=== PATIENT | female | born 1960 | race Caucasian/White ===

== ENCOUNTER 2017-09-18 11:04 | Emergency (ER) | payer OTHER ==
[2017-09-18] MEDS ORDERED: HYDROCODONE/APAP 5/325 MG TAB ONE (12:18)
--- NOTE | 2017-09-18 12:34 | RAD REPORT ---
EXAM DESCRIPTION: Shoulder Right 2 View - 09/18/2017 12:25 pm CLINICAL HISTORY: Shoulder pain COMPARISON: None. TECHNIQUE: Internal and external rotation views of the right shoulder were obtained. FINDINGS: There is no fracture or dislocation. AC joint is normal in appearance. No acute or suspici ous findings. IMPRESSION: Negative two-view right shoulder examination.
--- NOTE | 2017-09-18 12:35 | RAD REPORT ---
EXAM DESCRIPTION: RAD - Wrist Right 3 View - 09/18/2017 12:25 pm CLINICAL HISTORY: Fall, wrist pain COMPARISON: None. FINDINGS: No fracture is identified. There is no dislocation or periosteal reaction noted. Epiphyses and growth plates are Normal in appearance. No foreign body or other soft tissue abnormality. IMPRESSION: Negative right wrist examination.
--- NOTE | 2017-09-18 12:38 | RAD REPORT ---
EXAM DESCRIPTION: RAD - Knee Right 3 View - 09/18/2017 12:25 pm CLINICAL HISTORY: Fall, knee pain COMPARISON: None. FINDINGS: No acute fracture is present and there is no dislocation or periosteal reaction.No joint e ffusion seen. No joint space narrowing. Contusion or edema changes are present anterior to the tibia and anterior to the femur. There is curvilinear calcification along the medial femoral condyles. This is a Sagrario Stieda lesion from remote injury of the medial collateral ligament or adjacent tissu es. This is unrelated to the current event. IMPRESSION: No fracture identified. No acute bone or joint finding. Anterior contusion or edema changes distal femur and proximal tibia. Clinical concerns for internal derangement or occult bony injury could be further assessed with MR im aging.
--- NOTE | 2017-09-18 13:07 | ER ---
Nurse's Notes [facility] Name: Paloma Owens Age: 56 yrs Sex: Female : 1960 Arrival Date: 09/18/2017 Time: 11:08 Bed 17 Private MD: None, None Diagnosis: Other specified sprain of right wrist;Other sprain of right shoulder joint;Other internal derangements of right knee;Dislocation of tooth Presentation: 09/18 11:21 Presenting complaint: Patient states: i fell about an hour ago, aspirin a day, i was tw2 walking to the trash can and stepped side ways on the block and i fell forward and landed on my fact and my front tooth is loose and my right arm hurts and my right hand and right knee. Transition of care: patient was not received from another setting of care. Onset of symptoms was September 18, 2017. Risk Assessment: Do you want to hurt yourself or someone else? Patient reports no desire to harm self or others. Initial Sepsis Screen: Does the patient meet any 2 criteria? No. Patient's initial sepsis screen is negative. Does the patient have a suspected source of infection? No. Patient's initial sepsis screen is negative. Care prior to arrival: None. 11:21 Method Of Arrival: Ambulatory tw2 11:21 Acuity: REED 3 tw2 Historical: - Home Meds: 11:25 metformin 850 mg Oral tab 1 tab 2 times per day [Active]; lisinopril 10 mg Oral tab 1 tw2 tab once daily [Active]; basaglar kwikPen, insulin 30 units, once daily [Active]; glipizide 5 mg Oral tr24 1 tab once daily [Active]; methocarbamol 500 mg Oral tab 2 tabs 4 times per day [Active]; aspirin 81 mg Oral chew 1 tab once daily [Active]; furosemide 20 mg Oral tab 1 tab once daily [Active]; - PMHx: 11:25 Diabetes - IDDM; Hypertension; tw2 - Immunization history:: Adult Immunizations up to date. - Social history:: Smoking status: Patient uses tobacco products, 3 -4 cigarettes a day. Screenin:29 Abuse screen: Denies threats or abuse. Nutritional screening: No deficits noted. em Tuberculosis screening: No symptoms or risk factors identified. Fall Risk None identified. Assessment: 11:36 General: Appears in no apparent distress. uncomfortable, Behavior is calm, cooperative, em Reports tripping on step and falling, trying to catch self but landed on face, c/o facial pain, right knee and shoulder. Pain: Complains of pain in right knee, right shoulder, and face Pain currently is 10 out of 10 on a pain scale. Neuro: Level of Consciousness is awake, alert, obeys commands, Oriented to person, place, time, situation, Speech is normal, Facial symmetry appears normal. Cardiovascular: Capillary refill < 3 seconds Patient's skin is warm and dry. Cardiovascular: Denies shortness of breath. Respiratory: Airway is patent Respiratory effort is even, unlabored, Respiratory pattern is regular, symmetrical. GI: Abdomen is obese, Patient currently denies nausea, vomiting. : No signs and/or symptoms were reported regarding the genitourinary system. Derm: Skin is intact, Skin is pink, warm \T\ dry. Injury Description: Abrasion sustained to philtrum and right knee. 12:20 Reassessment: Patient appears in no apparent distress at this time. Patient and/or em family updated on plan of care and expected duration. Pain level reassessed. Patient is alert, oriented x 3, equal unlabored respirations, skin warm/dry/pink. family at bedside. 13:25 Reassessment: Patient appears in no apparent distress at this time. Patient and/or em family updated on plan of care and expected duration. Pain level reassessed. Patient is alert, oriented x 3, equal unlabored respirations, skin warm/dry/pink. Vital Signs: 11:23 BP 136 / 75; Pulse 92; Resp 17; Temp 97.5(O); Pulse Ox 97% on R/A; Weight 129.73 kg tw2 (R); Height 5 ft. 2 in. (157.48 cm); Pain 10/10; 12:30 BP 129 / 69; Pulse 80; Resp 18; Pulse Ox 98% on R/A; Pain 10/10; em 13:26 BP 116 / 76; Pulse 74; Resp 18; Pulse Ox 98% on R/A; Pain 4/10; em 11:23 Body Mass Index 52.31 (129.73 kg, 157.48 cm) tw2 ED Course: 11:08 Patient arrived in ED. mr 11:09 None, None is Private Physician. mr 11:22 Triage completed. tw2 11:23 Arm band placed on. tw2 11:32 Rob Simpson MD is Attending Physician. gs 11:35 Beto Brewer LVN is Primary Nurse. em 12:25 Shoulder Right (2 View) XRAY In Process Unspecified. EDMS 12:25 Wrist Right 3 View XRAY In Process Unspecified. EDMS 12:25 Knee Right 3 View XRAY In Process Unspecified. EDMS 12:29 Patient has correct armband on for positive identification. Bed in low position. Call em light in reach. Side rails up X 1. Adult w/ patient. 12:30 No provider procedures requiring assistance completed. Patient did not have IV access em during this emergency room visit. 13:06 Ishan Ortiz DDS is Referral Physician. gs Administered Medications: 12:20 Drug: [place] 5 mg-325 mg 1 tabs Route: PO; em 13:25 Follow up: Response: No adverse reaction; Pain is decreased em Outcome: 13:07 Discharge ordered by MD. gs 13:26 Discharged to home ambulatory. em 13:26 Condition: good 13:26 Discharge instructions given to patient, Instructed on discharge instructions, follow up and referral plans. no drinking with medication, no driving heavy equipment, medication usage, Demonstrated understanding of instructions, follow-up care, medications, Prescriptions given X 1. 13:27 Patient left the ED. em Signatures: Dispatcher [employer] [facility] Skinny Piper rice BrewerBeto LVN LVN em Ashley Maloney, RN RN tw2 Rob Simpson MD MD Corrections: (The following items were deleted from the chart) 13:26 11:20 Reassessment: Patient appears in no apparent distress at this time. Patient em and/or family updated on plan of care and expected duration. Pain level reassessed. Patient is alert, oriented x 3, equal unlabored respirations, skin warm/dry/pink. family at bedside em
--- NOTE | 2017-09-18 13:08 | EDPHYS ---
Physician Documentation [facility] Name: Paloma Owens Age: 56 yrs Sex: Female : 1960 Arrival Date: 09/18/2017 Time: 11:08 Bed 17 Private MD: None, None ED Physician Rob Simpson HPI: 09/18 13:02 This 56 yrs old Female presents to ER via Ambulatory with complaints of Fall gs Injury. 13:02 Details of fall: The patient fell from an upright position, while standing, while gs walking. Onset: The symptoms/episode began/occurred acutely, just prior to arrival. Associated injuries: The patient sustained injury to the head, abrasion, dental pain, anterior aspect of right shoulder and right wrist, right knee. Severity of symptoms: At their worst the symptoms were moderate, in the emergency department the symptoms are unchanged. The patient has not experienced similar symptoms in the past. The patient has not recently seen a physician. Historical: - Home Meds: 11:25 metformin 850 mg Oral tab 1 tab 2 times per day [Active]; lisinopril 10 mg Oral tab 1 tw2 tab once daily [Active]; basaglar kwikPen, insulin 30 units, once daily [Active]; glipizide 5 mg Oral tr24 1 tab once daily [Active]; methocarbamol 500 mg Oral tab 2 tabs 4 times per day [Active]; aspirin 81 mg Oral chew 1 tab once daily [Active]; furosemide 20 mg Oral tab 1 tab once daily [Active]; - PMHx: 11:25 Diabetes - IDDM; Hypertension; tw2 - Immunization history:: Adult Immunizations up to date. - Social history:: Smoking status: Patient uses tobacco products, 3 -4 cigarettes a day. ROS: 13:02 Neuro: Negative for loss of consciousness. gs 13:02 All other systems are negative. Exam: 13:02 Eyes: Pupils equal round and reactive to light, extra-ocular motions intact. Lids and gs lashes normal. Conjunctiva and sclera are non-icteric and not injected. Cornea within normal limits. Periorbital areas with no swelling, redness, or edema. Neck: Trachea midline, no thyromegaly or masses palpated, and no cervical lymphadenopathy. Supple, full range of motion without nuchal rigidity, or vertebral point tenderness. No Meningismus. Chest/axilla: Normal chest wall appearance and motion. Nontender with no deformity. No lesions are appreciated. Cardiovascular: Regular rate and rhythm with a normal S1 and S2. No gallops, murmurs, or rubs. Normal PMI, no JVD. No pulse deficits. Respiratory: Lungs have equal breath sounds bilaterally, clear to auscultation and percussion. No rales, rhonchi or wheezes noted. No increased work of breathing, no retractions or nasal flaring. Abdomen/GI: Soft, non-tender, with normal bowel sounds. No distension or tympany. No guarding or rebound. No evidence of tenderness throughout. Back: No spinal tenderness. No costovertebral tenderness. Full range of motion. Skin: Warm, dry with normal turgor. Normal color with no rashes, no lesions, and no evidence of cellulitis. Neuro: Awake and alert, GCS 15, oriented to person, place, time, and situation. Cranial nerves II-XII grossly intact. Motor strength 5/5 in all extremities. Sensory grossly intact. Cerebellar exam normal. Normal gait. 13:02 Constitutional: The patient appears alert, awake. 13:02 Head/face: Noted is abrasion(s), that are mild, of the nose and chin. 13:02 ENT: Dental exam: avulsion, partial, specifically the upper left central incisor (#9), malocclusion, is not appreciated. 13:02 Musculoskeletal/extremity: Circulation is intact in all extremities. Joints: the right shoulder and right wrist displays painful range of motion, tenderness, the right knee displays swelling, tenderness. Vital Signs: 11:23 BP 136 / 75; Pulse 92; Resp 17; Temp 97.5(O); Pulse Ox 97% on R/A; Weight 129.73 kg tw2 (R); Height 5 ft. 2 in. (157.48 cm); Pain 10/10; 12:30 BP 129 / 69; Pulse 80; Resp 18; Pulse Ox 98% on R/A; Pain 10/10; em 13:26 BP 116 / 76; Pulse 74; Resp 18; Pulse Ox 98% on R/A; Pain 4/10; em 11:23 Body Mass Index 52.31 (129.73 kg, 157.48 cm) tw2 MDM: 11:36 Patient medically screened. 13:02 Differential diagnosis: abrasion, fracture. Data reviewed: vital signs, nurses notes. Response to treatment: the patient's symptoms have mildly improved after treatment, and as a result, I will discharge patient. 09/18 11:36 Order name: Shoulder Right (2 View) XRAY; Complete Time: 12:59 gs 09/18 11:36 Order name: Wrist Right 3 View XRAY; Complete Time: 12:59 gs 09/18 11:36 Order name: Knee Right 3 View XRAY; Complete Time: 12:59 Administered Medications: 12:20 Drug: [place] 5 mg-325 mg 1 tabs Route: PO; em 13:25 Follow up: Response: No adverse reaction; Pain is decreased em Disposition: 09/18/17 13:07 Discharged to Home. Impression: Other specified sprain of right wrist, Other sprain of right shoulder joint, Other internal derangements of right knee, Dislocation of tooth. - Condition is Stable. - Discharge Instructions: Wrist Pain, Tooth Displacement, Shoulder Sprain. - Prescriptions for Tylenol- Codeine #4 300-60 mg Oral Tablet - take 1 tablet by ORAL route every 6 hours As needed; 10 tablet. - Medication Reconciliation Form, Thank You Letter, Antibiotic Education, Prescription Opioid Use form. - Follow up: Private Physician; When: 2 - 3 days; Reason: Re-evaluation by your physician. Follow up: Ishan Ortiz DDS; When: 2 - 3 days; Reason: Re-evaluation by your physician. Signatures: Dispatcher [employer] EDFL Beto Brewer, EVELYNE INFANTEN Ashley Maloney RN RN tw2 Rob Simpson MD MD Corrections: (The following items were deleted from the chart) 13:27 13:07 09/18/2017 13:07 Discharged to Home. Impression: Other specified sprain of right em wrist; Other sprain of right shoulder joint; Other internal derangements of right knee; Dislocation of tooth. Condition is Stable. Forms are Medication Reconciliation Form, Thank You Letter, Antibiotic Education, Prescription Opioid Use. Follow up: Private Physician; When: 2 - 3 days; Reason: Re-evaluation by your physician. Follow up: Ishan Ortiz; When: 2 - 3 days; Reason: Re-evaluation by your physician.
== END 2017-09-18 13:27 | disposition home or self-care (01) ==
LOC: ER 11:04
DX: S63.591A Other specified sprain of right wrist, initial encounter (principal); S43.491A Other sprain of right shoulder joint, initial encounter; M23.8X1 Other internal derangements of right knee; S03.2XXA Dislocation of tooth, initial encounter; W18.30XA Fall on same level, unspecified, initial encounter; Y93.01 Activity, walking, marching and hiking; Y92.9 Unspecified place or not applicable; Z79.82 Long term (current) use of aspirin; I10 Essential (primary) hypertension; E11.9 Type 2 diabetes mellitus without complications; F17.210 Nicotine dependence, cigarettes, uncomplicated
CPT/HCPCS: 99283